=== PATIENT | female | born 2000 | race Two or more races ===

== ENCOUNTER 2024-12-24 06:05 | Emergency (ER) | payer MEDICAID, SELFPAY ==
[2024-12-24 06:07] VITALS: BP 126/91; PULSE 99; RESP 18; TEMP 36.9; O2SAT 98; BMI 28.5
[2024-12-24] MEDS: ACETAMINOPHEN 500 MG TABLET 1000 MG PO (06:41)
[2024-12-24] MEDS: ONDANSETRON ODT 4 MG TABRAP PO (06:42)
--- NOTE | 2024-12-24 06:43 | PD.EDNECK ---
ED Neck Injury Pain RME/HPI General Chief Complaint: General Adult/Misc Complain Stated Complaint: LEFT SHOULDER PAIN, UPPER BACK PAIN Time Seen by Provider: 12/24/24 06:16 Arrival date/time: 12/24/24 06:05 This is a 24-year-old female that comes into the emergency room with complaints of left shoulder pain that started 5 days ago. Patient states she woke up with this pain. Patient states that she thought she might of slept wrong she states it has been hurting her. Patient also has upper respiratory symptoms that she has been taking NyQuil for at home. Patient's last menstrual period was December 20. Patient denies any past medical history. Patient denies any trauma injuries. Related Data Previous Rx's ?Medication ?Instructions ?Recorded ondansetron HCl 4 mg tablet 4 mg PO Q6H PRN nausea and 05/25/20 (Zofran) vomiting #30 tabs cyclobenzaprine 10 mg tablet 10 mg PO HS PRN muscle spasm #14 12/24/24 tabs ibuprofen 800 mg tablet 800 mg PO Q6H PRN pain #14 tabs 12/24/24 Allergies Allergy/AdvReac Type Severity Reaction Status Date / Time No Known Allergies Allergy Verified 12/24/24 06:06 Review of Systems Review of Systems Systems Reviewed: All systems reviewed, normal except as documented Past Medical History Social History SMOKING STATUS: Never smoker Travel History EBOLA RISK: No ED Exam Narrative Physical exam: VITAL SIGNS: Reviewed. GENERAL APPEARANCE: Alert and interactive, follows commands, no acute distress HEAD AND FACE: Non-traumatic. ENT: PERRL, conjuctiva pink and clear, eyelid no trauma, Mucous membrane moist. NECK: Supple, nontender, no nuchal rigidity. CHEST: No tenderness, no crepitus, no paradoxical movement, no retractions. LUNGS: breathing even and unlabored HEART: Regular rate, cap refill less than 2 seconds ABDOMEN: Soft, nondistended, no guarding, nontender, no rebound, no masses, NEUROLOGICAL: Gross motor function intact sensory function intact, Appropriate for age. MUSCULOSKELETAL: low back nontender, full range of motion. EXTREMITIES: No redness no swelling no skin breakdown on bilateral foot and leg. Distal neurovascular status intact bilateral foot. Pain with range of motion to left shoulder. No obvious deformities no swelling. Patient also complains of lateral left sided neck pain SKIN: Color pink, dry, no rash, no lacerations, no abrasions, no contusions. Course Quality Measures none Orders Category Date Time Status Acetaminophen Tab [Tylenol ES Tab] Med 12/24/24 06:32 Discontinued 1,000 mg PO X1 ONE CYCLObenzaPRINE [Flexeril] Med 12/24/24 06:32 Discontinued 10 mg PO X1 ONE Ketorolac Inj [Toradol Inj] Med 12/24/24 06:32 Discontinued 60 mg IM X1 ONE Ondansetron Odt [Zofran Odt] Med 12/24/24 06:32 Discontinued 4 mg PO X1 ONE Vital Signs Vital signs: Vital Signs Temperature 98.4 F 12/24/24 06:07 Pulse Rate 99 12/24/24 06:07 Respiratory Rate 18 12/24/24 06:07 Blood Pressure 126/91 H 12/24/24 06:07 Pulse Oximetry (%) 98 12/24/24 06:07 Oxygen Delivery Method Room Air 12/24/24 06:07 Neck Pain MDM Narrative MDM Narrative:: Will treat with Tylenol and Toradol. I also gave patient a muscle relaxer and some Zofran in case she gets nauseous.PT told to follow up with pmd in 1-2 days. Come back to ED if symptoms change or worsens. Dragon dictation: Although this document has been carefully reviewed, there may still be some phonetic and other typographical errors. These errors are purely grammatical due to imperfections in the software program and should not be construed in any way to compromise the substance of the patient's medical care during this visit. Patient data External records reviewed:: [facility] previous records Clinical information provided by:: patient Social determinants that could affect healthcare access:: none Patient has the following chronic illnesses:: none How is presenting disease/condition affected by chronic disease/condition?: no chronic disease Evaluation data The following diagnostics were reviewed and interpreted by me:: other (specify) (none ) Lab and/or radiology exams considered but not ordered:: none Interpretation Summary: see note Medications / Prescriptions Medications or Prescriptions considered but not ordered:: none Medication administrations:: Medication Administration History Discontinued Medications Acetaminophen (Acetaminophen 500 Mg Tablet) 1,000 mg PO X1 ONE Stop: 12/24/24 06:33 Last Admin: 12/24/24 06:41 Dose: 1,000 mg Documented By: CVL Cyclobenzaprine HCl (Cyclobenzaprine 5 Mg Tablet) 10 mg PO X1 ONE Stop: 12/24/24 06:33 Last Admin: 12/24/24 06:42 Dose: 10 mg Documented By: CVL Ketorolac Tromethamine (Ketorolac Inj 60 Mg/2 Ml Vial) 60 mg IM X1 ONE Stop: 12/24/24 06:33 Last Admin: 12/24/24 06:44 Dose: 60 mg Documented By: CVL Ondansetron HCl (Ondansetron Odt 4 Mg Tabrap) 4 mg PO X1 ONE; Protocol Stop: 12/24/24 06:33 Last Admin: 12/24/24 06:42 Dose: 4 mg Documented By: CVL see mar Consultations Consultation(s) initiated? (list below): No Diagnosis Neck Differential Diagnosis: cervical radiculopathy, cervical spondylosis, strain of neck muscle and other (shoulder pain ) Most likely diagnosis given after review of the tests above:: shoulder pain Admission Indicated Admission indicated?: not indicated Admission Request Was there a request for admission?: No Disposition Plan Disposition Plan: Discharge Discharge Attestation Discharge Attestation: The patient and all family members were given an opportunity to ask questions and understood the discharge instructions. Discharge instructions specifically effects, indications for sooner follow up or return to the emergency department, and the expected course of current diagnosis. Patient condition: Stable Discharge Plan Plan Patient Disposition: HOME (Self Care) Patient condition on transfer: Stable Prescriptions/Referrals Prescriptions/Med Rec: New cyclobenzaprine 10 mg tablet 10 mg PO HS PRN (Reason: muscle spasm) Qty: 14 0RF ibuprofen 800 mg tablet 800 mg PO Q6H PRN (Reason: pain) Qty: 14 0RF No Action ondansetron HCl [Zofran] 4 mg tablet 4 mg PO Q6H PRN (Reason: nausea and vomiting) Qty: 30 0RF Referrals: No Primary/Family,Physician [Primary Care Provider] - In 1 week Problem List Clinical Impression: Acute shoulder pain, Neck pain Patient/Caregiver Discharge Instructions Discharge Activity: activity as tolerated Education Materials: ED Neck Pain Additional Instructions: Follow up with primary provider in 1-2 days. Come back to ED if symptoms change or worsen Print Language: Maltese Stand Alone Forms: Kathe Award Info., Patient Portal Info Letter PA/FINANCIAL RISK MANAGER Supervising Physician RENZO/DARIO Supervising Physician: marbin
[2024-12-24] MEDS: KETOROLAC INJ 60 MG/2 ML VIAL IM (06:44)
== END 2024-12-24 08:20 | disposition home or self-care (01) ==
PROVIDERS: Emergency Provider Emergency Medicine
DX: M25.512 Pain in left shoulder (principal); M54.2 Cervicalgia
CPT/HCPCS: 96372; 99283; J1885; Q0162; A9270